=== PATIENT | female | born 1945 | race Caucasian/White ===

== ENCOUNTER 2019-03-19 08:50 | Day surgery (SDC) | payer MEDICARE ==
[~2019-03-19] VITALS: Ht 167.6 cm; Wt 71.4 kg
[~2019-03-19 08:50] MED LIST: ALLO100 PO; CELE100; CELE200 PO; CYCL10 PO; LEVSOD50 PO; LOSHYD; METO100ER; OXYACE5T PO; OXYACE7.5T PO; OXYC10TA19 PO; PROACE100; [UNRECOGNIZED DRUG - OTHER]
--- NOTE | 2019-03-19 10:19 | NUR ---
03/19/19 1019 Perlita Fajardo PT REQUESTED IV BE PUT IN LAC
--- NOTE | 2019-03-19 10:48 | NUR ---
03/19/19 1048 Ericka Reeder 80MG OF DEPOMEDROL INJECTED BY
== END 2019-03-19 11:07 | disposition home or self-care (01) ==
LOC: ORSCSDS 08:50
PROVIDERS: Anesthesiology
PROC: 3E0R33Z Introduction of Anti-inflammatory into Spinal Canal, Percutaneous Approach (ICD-10-PCS; principal; 2019-03-19 10:00)
DX: M50.122 Cervical disc disorder at C5-C6 level with radiculopathy (principal); F41.9 Anxiety disorder, unspecified; E03.9 Hypothyroidism, unspecified; G47.30 Sleep apnea, unspecified; I10 Essential (primary) hypertension; M35.3 Polymyalgia rheumatica; Z87.891 Personal history of nicotine dependence; Z79.899 Other long term (current) drug therapy
CPT/HCPCS: J1040; J2250; J3010

== ENCOUNTER 2019-06-12 10:56 | Day surgery (SDC) | payer MEDICARE ==
[~2019-06-12] VITALS: Ht 167.6 cm; Wt 71.3 kg
[~2019-06-12 10:56] MED LIST changes: +Diclofenac Sodi50 MG PO; +EUTHYROX112 MCG PO; +METO100ER PO; +OXYC5 PO; +Xanax0.5 MG PO
--- NOTE | 2019-06-12 11:58 | NUR ---
06/12/19 1158 Irena Amaro LATE ENTRY---DURING THE ADMIT PROCESS I WAS PREPARING TO START IV AND PATIENT INSISTED THAT I NOT USE HER HANDS. SHE INSISTED THAT THE IV GO INTO THE AC. I EXPLAINED TO HER WHY THIS IS NOT THE BEST CHOICE AND SHE AGAIN INSISTED AND EXPLAINED THAT HER PRIOR CSI WAS DONE WITH THE IV IN HER AC. I PLACED THE IV IN THE LEFT AC PER HER INSISTENCE. DR WHITEHEAD NOTIFIED OF THE ABOVE
== END 2019-06-12 12:43 | disposition home or self-care (01) ==
LOC: ORSCSDS 10:56
PROVIDERS: Anesthesiology
PROC: 3E0R33Z Introduction of Anti-inflammatory into Spinal Canal, Percutaneous Approach (ICD-10-PCS; principal; 2019-06-12 12:15)
DX: M50.122 Cervical disc disorder at C5-C6 level with radiculopathy (principal); G47.33 Obstructive sleep apnea (adult) (pediatric); I10 Essential (primary) hypertension; E03.9 Hypothyroidism, unspecified; F41.9 Anxiety disorder, unspecified; Z87.891 Personal history of nicotine dependence; Z79.899 Other long term (current) drug therapy
CPT/HCPCS: J1040; J2250; J3010; J7120

== ENCOUNTER 2019-08-02 16:10 | Emergency (ER) | payer MEDICARE ==
[~2019-08-02] VITALS: Ht 167.6 cm; Wt 70.3 kg
[2019-08-02] MEDS ORDERED: Norco 5-325 Ta1 EACH PO (18:39)
== END 2019-08-02 19:06 | disposition home or self-care (01) ==
LOC: ER 16:10
DX: S59.202A Unspecified physeal fracture of lower end of radius, left arm, initial encounter for closed fracture (principal); S52.612A Displaced fracture of left ulna styloid process, initial encounter for closed fracture; I10 Essential (primary) hypertension; E03.9 Hypothyroidism, unspecified; Z88.8 Allergy status to other drugs, medicaments and biological substances; Z88.5 Allergy status to narcotic agent; Z79.899 Other long term (current) drug therapy; W01.10XA Fall on same level from slipping, tripping and stumbling with subsequent striking against unspecified object, initial encounter
CPT/HCPCS: 25605; 73100; 73110; 96374-59; 96376-59; 99283-25; J3010

== ENCOUNTER 2019-08-08 09:06 | Day surgery (SDC) | payer MEDICARE ==
[~2019-08-08] VITALS: Ht 167.6 cm; Wt 71.8 kg
[~2019-08-08 09:06] MED LIST changes: +Norco 5-325 Ta1 EACH PO
--- NOTE | 2019-08-08 09:47 | NUR ---
History, Chart, Medications and Allergies reviewed before start of procedure. Patient confirms NPO status and agrees with scheduled surgery. Patient reports completing Chlorhexadine shower X2 prior to admission to hospital. Lungs clear T/O to Auscultation. Pre-Op teaching done. Pt verbalizes understanding. Patient States Post-Procedure ride home has been arranged. NO JEWLERY TODAY, DENTURES TOP AND BOTTOM IN PLACE, NO CONTACTS, NO HEARING DEVICES.
--- NOTE | 2019-08-08 10:18 | NUR ---
LEFT FOREARM ELEVATED ON PILLOWS, PATIENT STATES COMFORTABLE.
--- NOTE | 2019-08-08 10:32 | NUR ---
CANDLE MOLDER REPORT COMPLETED AT BEDSIDE WITH JONAH GALVEZ RN. DISCUSSED NEED TO REMOVE DENTURES DURING SURGERY WITH PATIENT PER DR FONTANA, PATIENT RESISTANT BUT STATES IT WILL BE OK. REASSURED SHE CAN HAVE THEM BACK SOON SHE'S AWAKE ENOUGH TO ASK FOR THEM.
--- NOTE | 2019-08-08 12:14 | NUR ---
END OF MY PATIENT CARE. REPORT GIVEN TO FINA SCHWAB.
--- NOTE | 2019-08-08 12:45 | NUR ---
CARE TRANFERED TO ANGLE ODOM.
--- NOTE | 2019-08-08 12:56 | NUR ---
"APPLICATIONS SALES REPRESENTATIVE | REPORT FROM FINA ODOM"
--- NOTE | 2019-08-08 14:23 | NUR ---
Discharge instructions reviewed with patient. Patient verbalizes understanding. Copy given to patient to take home. Discharged via wheelchair to private car for ride home. PATIENT REPORTS DECREASED PAIN WITH YARA BANDAGE ADJUSTMENT.
--- NOTE | 2019-08-09 10:49 | NUR ---
08/09/19 1049 Rita Varela VERIFICATIONS: EDIT CHART.
== END 2019-08-08 14:22 | disposition home or self-care (01) ==
LOC: ORSCMMR 09:06 → ORD 10:45 → ORSCMMR 10:45
PROVIDERS: Orthopaedic Surgery
PROC: 0PSJ04Z Reposition Left Radius with Internal Fixation Device, Open Approach (ICD-10-PCS; principal; 2019-08-08 10:45)
DX: S52.552A Other extraarticular fracture of lower end of left radius, initial encounter for closed fracture (principal); I10 Essential (primary) hypertension; I25.2 Old myocardial infarction; G47.33 Obstructive sleep apnea (adult) (pediatric); Z87.891 Personal history of nicotine dependence; Z79.899 Other long term (current) drug therapy
CPT/HCPCS: 73110; A9270-GY; C1713; J0690; J1100; J1170; J1885; J2250; J2405; J2704; J3010; J7120

== ENCOUNTER 2019-09-16 10:58 | Day surgery (SDC) | payer MEDICARE ==
[~2019-09-16] VITALS: Ht 167.6 cm; Wt 70.8 kg
--- NOTE | 2019-09-16 13:46 | NUR ---
09/16/19 1346 Gretchen Costello LATE ENTRY FOR TODAY AT 1339 ASSUMED CARE OF PATIENT FROM ILENE JONES. PATIENT STATES THAT SHE IS HAVING MINIMAL PAIN RATED AT 4-5/10. NO OTHER COMPLAINTS AT THIS TIME. PATIENT WILL BE DISCHARGED HOME.
== END 2019-09-16 13:44 | disposition home or self-care (01) ==
LOC: ORSCSDS 10:58
PROVIDERS: Anesthesiology
PROC: 3E0R33Z Introduction of Anti-inflammatory into Spinal Canal, Percutaneous Approach (ICD-10-PCS; principal; 2019-09-16 12:00)
DX: M50.122 Cervical disc disorder at C5-C6 level with radiculopathy (principal); G47.33 Obstructive sleep apnea (adult) (pediatric); I10 Essential (primary) hypertension; E03.9 Hypothyroidism, unspecified; F41.9 Anxiety disorder, unspecified; Z87.891 Personal history of nicotine dependence; Z79.899 Other long term (current) drug therapy
CPT/HCPCS: J1040; J2250; J3010

== ENCOUNTER 2019-11-08 10:20 | Day surgery (SDC) | payer MEDICARE, OTHER ==
[~2019-11-08] VITALS: Ht 167.6 cm; Wt 71.6 kg
--- NOTE | 2019-11-08 12:09 | NUR ---
11/08/19 Pina9 Jazmine Reinoso RN ADJUSTED BED AND PROVIDED WARM BLANKETS FOR COMFORT. CALL LIGHT IN REACH. NO NEEDS AT THIS TIME.
--- NOTE | 2019-11-08 13:45 | NUR ---
11/08/19 1185 BEVERLEY PAIGE PATIENT MEDICATED WITH 25 MCG IV FENTAYL X2. PAIN WAS RATED BY PATIENT AT AN 9 OUT OF 10 AND IS NOW DOWN TO A 7. SHE IS SITTING UP IN CHAIR, DRINKING HOT TEA AND TOLERATING COOKIES. ICE PACK TO RIGHT ELBOW. VSS. FAMILY AT BEDSIDE.
== END 2019-11-08 14:14 | disposition home or self-care (01) ==
LOC: ORSCSDS 10:20
PROVIDERS: Orthopaedic Surgery
PROC: 01N40ZZ Release Ulnar Nerve, Open Approach (ICD-10-PCS; principal; 2019-11-08 12:00)
DX: G56.20 Lesion of ulnar nerve, unspecified upper limb (principal); I10 Essential (primary) hypertension; F41.9 Anxiety disorder, unspecified; Z79.899 Other long term (current) drug therapy
CPT/HCPCS: J0690; J1100; J1885; J2250; J2405; J2704; J3010; J7120

== ENCOUNTER → 2023-09-04 | Outpatient (CLI) | payer MEDICARE, OTHER | LOC: LAB 15:17 → LAB SHORT 15:17 | DX: L08.9 Local infection of the skin and subcutaneous tissue, unspecified (principal) | CPT/HCPCS: 87070; 87077; 87186; 87205 ==

== ENCOUNTER → 2023-10-17 | Outpatient (CLI) | payer MEDICARE | LOC: PLD 09:06 → LAB SHORT 09:06 | DX: C44.319 Basal cell carcinoma of skin of other parts of face (principal) | CPT/HCPCS: 88305 ==

== ENCOUNTER 2025-01-24 06:06 | Day surgery (SDC) | payer MEDICARE ==
[~2025-01-24] VITALS: Ht 170.2 cm; Wt 80.8 kg
[2025-01-24] MEDS ORDERED: CeFAZolin Sodium 2,000 MG VIAL ONE (06:40)
[2025-01-24] MEDS ORDERED: Lactated Ringer's 1,000 ML IV ONE (06:40)
[2025-01-24] MEDS ORDERED: NS 0 ML IV ONE (06:40)
[2025-01-24] MEDS ORDERED: Bupivacaine 0.5% W/EPI 1:200000 SDV 30 ML Vial ONE (06:52)
--- NOTE | 2025-01-24 07:47 | NUR ---
01/24/25 0747 Jackson Suh BLOCK: TIME OUT ADÁN AT 0721. PT ON PULSE OX O2 AT [address] NC [address] HIGGINS. POPLITEAL AND ADUCTOR BLOCK PT VSS THROUGHOUT. BLOCK END TIME 07. REPORT GIVEN TO ILENE TRUJILLO.
[2025-01-24] MEDS ORDERED: Dexamethasone Sod Phos 10 MG/ML 1ML VIAL ONE (08:18)
[2025-01-24] MEDS ORDERED: Midazolam HCl 1MG / ML 2ML Vial ONE (08:18)
[2025-01-24] MEDS ORDERED: Ondansetron HCl 2 MG / ML 2ML Vial ONE (08:18)
[2025-01-24] MEDS ORDERED: FentaNYL Citrate 50 MCG/ML 2 ML Injection ONE ×2 (08:18→10:41)
[2025-01-24] MEDS ORDERED: propofoL 20 ML IV ONE ×2 (08:18→09:24)
[2025-01-24] MEDS ORDERED: propofoL 40 ML IV ONE (08:18)
--- NOTE | 2025-01-24 10:12 | NUR ---
01/24/25 1012 EKATERINA SANCHEZ 1000: ON 3L NC. 1009: RA TRIAL SATS 98%. PT DENIES PAIN AND NAUSEA. 1012: SATS 95% ON RA
[2025-01-24] MEDS ORDERED: OxyCODONE HCL 5 MG TAB ONE (10:30)
[2025-01-24 10:52] VITALS: BP 108/63
== END 2025-01-24 11:27 | disposition home or self-care (01) ==
LOC: ORSCSDS 06:06
DX: M19.072 Primary osteoarthritis, left ankle and foot (principal); I10 Essential (primary) hypertension; G47.33 Obstructive sleep apnea (adult) (pediatric); Z87.891 Personal history of nicotine dependence; E03.9 Hypothyroidism, unspecified; Z79.899 Other long term (current) drug therapy
CPT/HCPCS: 73610; A9270; C1776; J0690; J1100; J2250; J2405; J2704; J3010; J7120